=== PATIENT | female | born 1960 | race African-American/Black ===

== ENCOUNTER 2018-05-27 17:47 | Emergency (ER) | payer OTHER ==
[~2018-05-27] VITALS: Ht 167.6 cm; Wt 65.8 kg
[2018-05-27 17:50] VITALS: BP 112/73
--- NOTE | 2018-05-27 17:50 | NUR ---
ED Nurse Note: PT WALKED IN TO ER TODAY FROM HOME. AOX4. PT C/O RIGHT MIDDLE FINGER PAIN, 6/10 AFTER A DOOR SLAMMED ON IT X LAST NIGHT. PT ALSO C/O SOME RESIDUAL SWELLING X LAST NIGHT. CIRCULATION AND SENSATION INTACT, CAP REFILL <3 SECONDS, FULL ROM OF DIGIT. SKIN CLEAN, DRY, AND INTACT.
[2018-05-27] MEDS ORDERED: ADDERALL 10 MG10 MG ORAL (17:54)
[2018-05-27] MEDS ORDERED: BUSPIRONE HCL10 M1 ORAL (17:54)
--- NOTE | 2018-05-27 18:57 | Emergency Room Report ---
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 Patient reports loss of swelling in the right finger after the injury patient took ibuprofen with relief. Patient reports there was blackening of the right third digit nail and she put nail nicaraguan over as she does not want to look at it. Denies pain radiation, numbness, tingling. Patient is rating the pain 5 out of 10 and intermittent. Pain only upon palpation of the affected area range of motion intact. Denies all other injury, SOB, chest pain, palpitation and all other associated symptoms. Patient is very impatient and wants to go home and asks multiple times to be out of the emergency room in less than 30 minutes. Patient has been explained that x-rays needs to be done to rule out crushing injury or fracture into to remove nail nicaraguan to rule out subungual hematoma (Omkar Rockwell) Allergies: Coded Allergies: No Known Allergies (Unverified , 05/27/18) Patient History Past Medical History: see triage record Past Surgical History: none Pertinent Family History: none Last Menstrual Period: n/a Now: No : 2 Para: 2 Immunizations: UTD Reviewed Nursing Documentation: PMH: Agreed; PSxH: Agreed (Omkar Rockwell) Nursing Documentation-PMH Past Medical History: No History, Except For (Omkar Rockwell) Review of Systems All Other Systems: negative except mentioned in HPI (Omkar Rockwlel) Physical Exam Vital Signs Date Time Temp Pulse Resp B/P (MAP) Pulse Ox O2 Delivery O2 Flow Rate FiO2 05/27/18 17:50 98.4 98 18 102/69 94 Room Air Sp02 EP Interpretation: reviewed, normal General Appearance: normal inspection, well appearing, no apparent distress Head: normocephalic Eyes: bilateral eye normal inspection, bilateral eye PERRL ENT: normal ENT inspection, normal pharynx Neck: normal inspection, full range of motion Respiratory: normal inspection, lungs clear Cardiovascular #1: normal inspection, no edema, no murmur Cardiovascular #2: 2+ radial (R), 2+ radial (L) Gastrointestinal: normal inspection, soft Rectal: deferred Genitourinary: deferred Musculoskeletal: normal range of motion, other - No subungual hematoma noted however bruising over right third finger at nail bed, tender - right third finger at the DIP Neurologic: normal inspection, alert Psychiatric: normal inspection Skin: normal inspection, normal color, no rash Lymphatic: normal inspection, no adenopathy (Omkar Rockwell) Medical Decision Making PA Attestation Diagnoses and treatment plans are reviewed and discussed with supervising physician Dr. 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 Patient reports loss of swelling in the right finger after the injury patient took ibuprofen with relief. Patient reports there was blackening of the right third digit nail and she put nail nicaraguan over as she does not want to look at it. Denies pain radiation, numbness, tingling. Patient is rating the pain 5 out of 10 and intermittent. Pain only upon palpation of the affected area range of motion intact. Denies all other injury, SOB, chest pain, palpitation and all other associated symptoms. Patient is very impatient and wants to go home and asks multiple times to be out of the emergency room in less than 30 minutes. Patient has been explained that x-rays needs to be done to rule out crushing injury or fracture into to remove nail nicaraguan to rule out subungual hematoma Ddx considered but are not limited to asked her right ring finger, subungual hematoma, contusion of right finger with nailbed Vital signs: are WNL, pt. is afebrile H&PE are most consistent with lesion of right third finger with nailbed ORDERS: x-ray right finger, naproxen ED INTERVENTIONS: None required at this time. DISCHARGE: At this time pt. is stable for d/c to home. Will provide printed patient care instructions, and any necessary prescriptions. Care plan and follow up instructions have been discussed with the patient prior to discharge. she has been explained that isneededasthereisnofracture, patientavoidputtingnailpolishoveraffectedareaassheneedstokeepcheckingcapillaryre fill.Takemedicationasdirected , (Omkar Rockwell) Other X-Ray Diagnostic Results Other X-Ray Diagnostic Results : X-Ray ordered: finger right hand # of Views/Limited Vs Complete: 3 View Indication: Swelling EP Interpretation: Yes PA Xray: Interpretation reviewed, by supervising MD, and agrees with findings. Interpretation: no dislocation, no soft tissue swelling, no fractures Impression: No acute disease Electronically Signed by: omkar ESCOBAR Scribe Text reading of images have been discussed with my supervising physician Dr. Pendleton (Omkar Rockwell) Other X-Ray Diagnostic Results : Electronically Signed by: Soren Oleary documentation of Xray reviewed by me and is accurate, Juan Pendleton MD (Juan Pendleton MD) Last Vital Signs Date Time Temp Pulse Resp B/P (MAP) Pulse Ox O2 Delivery O2 Flow Rate FiO2 05/27/18 17:50 98.3 94 16 112/73 98 Room Air (Omkar Rockwell) Disposition: HOME, SELF-CARE Condition: Stable Scripts Naproxen* (NAPROSYN*) 250 Mg Tablet 250 MG ORAL TWICE A DAY, #15 TAB 0 Refills Prov: Omkar Rockwell 05/27/18 Referrals: [facility]ERR[facility] (PCP) Patient Instructions: Contusion, [id number] Additional Instructions: medications as directed and avoid lifting heavy objects with the affected side icing the finger will help with pain and the healing process. Omkar Rockwell May 27, 2018 18:57 Juan Pendleton MD May 28, 2018 01:28
[2018-05-27] MEDS ORDERED: NAPROXEN250 MG ORAL (18:58)
[2018-05-27 19:03] VITALS: BP 116/76
--- NOTE | 2018-05-27 19:04 | NUR ---
ER Nurse Note: PT SITTING PEACEFULLY IN BED IN NAD. AOX4. PRESCRIPTION AND DISCHARGE PAPERWORK EXPLAINED TO PT. PT VERBALIZES UNDERSTANDING AND DENIES ANY QUESTIONS AT THIS TIME. PRESCRIPTION AND DISCHARGE PAPERWORK GIVEN TO PT AND ID WRISTBAND REMOVED. PT WALKED OUT OF ER WITH STEADY GAIT WITH ALL BELONGINGS.
--- NOTE | 2018-05-28 11:03 | Diagnostic Imaging Report ---
Indication: Trauma, pain Technique: 3 views of the right middle finger Comparison: none Findings: No acute fractures. No dislocations. The joint spaces are preserved. Impression: No acute bony trauma
== END 2018-05-27 19:04 | disposition home or self-care (01) ==
LOC: EMR 18:05
DX: S60.131A Contusion of right middle finger with damage to nail, initial encounter (principal); W23.0XXA Caught, crushed, jammed, or pinched between moving objects, initial encounter; Y92.9 Unspecified place or not applicable
CPT/HCPCS: 99283

== ENCOUNTER 2018-07-11 09:40 | Emergency (ER) | payer OTHER ==
[~2018-07-11] VITALS: Ht 172.7 cm; Wt 77.1 kg
[~2018-07-11 09:40] MED LIST: ADDERALL 10 MG10 MG ORAL; BUSPIRONE HCL10 M1 ORAL; NAPROXEN250 MG ORAL
[2018-07-11] MEDS ORDERED: UNOBMED (09:48)
--- NOTE | 2018-07-11 09:59 | NUR ---
ED Nurse Note: PT WALKED IN TO ER TODAY FROM HOME. AOX4. PT C/O RIGHT SIDED BACK PAIN, 10 X THIS AM ACCOMPANIED BY NAUSEA. PT DENIES VOMITING. PT DENIES INJURY OR TRAUMA. PT ALSO C/O NUMBNESS AND TINGLING ON RIGHT HAND. PT DENIES CHEST PAIN.
[2018-07-11 10:00] VITALS: BP 143/69
[2018-07-11] MEDS ORDERED: Ketorolac 30mg Inj IV ONE (10:00)
--- NOTE | 2018-07-11 10:01 | Emergency Room Report ---
History of Present Illness General Chief Complaint: Back Pain-No Injury Source: Patient Present Illness HPI Patient presents with right upper back pain radiating to her right arm that began last night. She tried smoking cannabis to help this. She's had pain in her back in the past but not like this before. It worsened. She has any fevers or chills. The pain is so severe, she is having difficulty speaking. It is a burning and aching pain and rated 10/10 and constant. She denies lower extremity weakness, edema or calf pain. No sore throat, cough, rashes. She denies diabetes or high blood pressure. Allergies: Coded Allergies: No Known Allergies (Unverified , 05/27/18) Patient History Past Medical History: see triage record Social History: Reports: drug use - THC; Denies: smoking Social History Narrative Accompanied by friend Last Menstrual Period: menopause Reviewed Nursing Documentation: PMH: Agreed; PSxH: Agreed Nursing Documentation-PMH Past Medical History: No History, Except For History Of Psychiatric Problem: Yes - depression, anxiety Review of Systems All Other Systems: negative except mentioned in HPI Physical Exam Vital Signs Date Time Temp Pulse Resp B/P (MAP) Pulse Ox O2 Delivery O2 Flow Rate FiO2 07/11/18 09:46 98.2 67 18 150/81 96 Room Air Sp02 EP Interpretation: reviewed, normal General Appearance: well appearing, GCS 15 - Though somewhat subdued mentation , mild distress, other - Strong smell of cannabis with patient Head: normocephalic Eyes: bilateral eye PERRL, bilateral eye Scleral Injection ENT: moist mucus membranes Neck: supple Respiratory: lungs clear, normal breath sounds, other - Scapular muscle pain Cardiovascular #1: regular rate, rhythm, no edema Cardiovascular #2: 2+ radial (R) Gastrointestinal: normal inspection, normal bowel sounds, non tender, no mass, non-distended Genitourinary: no CVA tenderness Musculoskeletal: normal range of motion, no calf tenderness Neurologic: alert, oriented x3, motor strength/tone normal, DTRs symmetric, sensory intact - However subjective tingling of right arm Skin: normal inspection, warm/dry Medical Decision Making Diagnostic Impression: Primary Impression: Muscle spasm Additional Impression: Paresthesias ER Course Patient presents with right-sided chest pain with numbness in her right arm. Differential includes muscle spasm, stroke, acute myocardial infarction, pneumothorax, pulmonary embolus amongst others. Based on history and physical exam pulmonary embolus is less likely. Patient is evaluated with EKG, chest x- ray labs. Based on the fact that she has difficulty speaking and paresthesias a CT of the head is ordered. EKG without injury. Chest x-ray no infiltrate. CT of the head normal. Labs with normal white count. CMP minimal hypokalemia, slightly elevated out [place], glucose 130. Urine tox positive for THC. After analgesia patient able to speak in full sentences and ambulatory without difficulty. States pain is greatly improved and numbness is decreased but still present. Patient upset about including THC use in diagnosis. Long discussion about this. Based on her insistence and the fact that the history is complete, diagnosis removed. Also discussed possible etiology of pain. and expected treatment course. No medical emergency and patient is stable for outpatient observation and treatment. Laboratory Tests Test 07/11/18 10:20 07/11/18 11:19 White Blood Count 10.4 K/UL (4.8-10.8) Red Blood Count 4.91 M/UL (4.20-5.40) Hemoglobin 14.7 G/DL (12.0-16.0) Hematocrit 43.0 % (37.0-47.0) Mean Corpuscular Volume 88 FL (80-99) Mean Corpuscular Hemoglobin 30.0 PG (27.0-31.0) Mean Corpuscular Hemoglobin Concent 34.3 G/DL (32.0-36.0) Red Cell Distribution Width 11.4 % (11.6-14.8) L Platelet Count 347 K/UL (150-450) Mean Platelet Volume 5.6 FL (6.5-10.1) L Neutrophils (%) (Auto) 84.8 % (45.0-75.0) H Lymphocytes (%) (Auto) 10.9 % (20.0-45.0) L Monocytes (%) (Auto) 3.4 % (1.0-10.0) Eosinophils (%) (Auto) 0.3 % (0.0-3.0) Basophils (%) (Auto) 0.7 % (0.0-2.0) Prothrombin Time 9.4 SEC (9.30-11.50) Prothrombin Time INR 0.9 (0.9-1.1) PTT 28 SEC (23-33) Sodium Level 139 MMOL/L (136-145) Potassium Level 3.4 MMOL/L (3.5-5.1) L Chloride Level 102 MMOL/L (98-107) Carbon Dioxide Level 25 MMOL/L (21-32) Anion Gap 12 mmol/L (5-15) Blood Urea Nitrogen 10 mg/dL (7-18) Creatinine 0.9 MG/DL (0.55-1.30) Estimate Glomerular Filtration Rate > 60 mL/min (>60) Glucose Level 130 MG/DL (74-106) H Calcium Level 9.1 MG/DL (8.5-10.1) Total Bilirubin 0.4 MG/DL (0.2-1.0) Aspartate Amino Transferase (AST) 20 U/L (15-37) Alanine Aminotransferase (ALT) 27 U/L (12-78) Alkaline Phosphatase 130 U/L (46-116) H Total Creatine Kinase 125 U/L (26-308) Troponin I 0.000 ng/mL (0.000-0.056) Pro-B-Type Natriuretic Peptide 153 pg/mL (0-125) H Total Protein 7.8 G/DL (6.4-8.2) Albumin 3.6 G/DL (3.4-5.0) Globulin 4.2 g/dL Albumin/Globulin Ratio 0.9 (1.0-2.7) L Urine Color Pale yellow Urine Appearance Clear Urine pH 8 (4.5-8.0) Urine Specific [place] 1.015 (1.005-1.035) Urine Protein Negative (NEGATIVE) Urine Glucose (UA) Negative (NEGATIVE) Urine Ketones Negative (NEGATIVE) Urine Blood Negative (NEGATIVE) Urine Nitrite Negative (NEGATIVE) Urine Bilirubin Negative (NEGATIVE) Urine Urobilinogen Normal MG/DL (0.0-1.0) Urine Leukocyte Esterase Negative (NEGATIVE) Urine Opiates Screen Negative (NEGATIVE) Urine Barbiturates Screen Negative (NEGATIVE) Phencyclidine (PCP) Screen Negative (NEGATIVE) Urine Amphetamines Screen Negative (NEGATIVE) Urine Benzodiazepines Screen Negative (NEGATIVE) Urine Cocaine Screen Negative (NEGATIVE) Urine Marijuana (THC) Screen Positive (NEGATIVE) H EKG Diagnostic Results Rate: normal Rhythm: NSR ST Segments: no acute changes - Incomplete right bundle-branch block Rhythm Strip Diag. Results EP Interpretation: yes Rhythm: NSR, no PVC's, no ectopy Chest X-Ray Diagnostic Results Chest X-Ray Diagnostic Results : Chest X-Ray Ordered: Yes # of Views/Limited/Complete: 1 View Indication: Chest Pain Interpretation: no consolidation, no effusion, no pneumothorax Impression: No acute disease Electronically Signed by: Electronically signed by Juan Pendleton MD Last Vital Signs Date Time Temp Pulse Resp B/P (MAP) Pulse Ox O2 Delivery O2 Flow Rate FiO2 07/11/18 14:13 98.4 64 16 132/68 100 Room Air Status: improved Disposition: HOME, SELF-CARE Condition: Improved Scripts Ibuprofen* (MOTRIN*) 600 Mg Tablet 600 MG ORAL Q6H PRN for For Pain, #20 TAB Prov: Juan Pendleton MD 07/11/18 Tramadol Hcl* (ULTRAM*) 50 Mg Tablet 50 MG ORAL Q6H PRN for For Pain, #10 TAB 0 Refills Prov: Juan Pendleton MD 07/11/18 Methocarbamol* (ROBAXIN*) 500 Mg Tablet 500 MG PO TID, #10 TAB 0 Refills Prov: Juan Pendleton MD 07/11/18 Juan Pendleton MD Jul 11, 2018 10:01
--- NOTE | 2018-07-11 10:16 | NUR ---
ED Nurse Note: XRAY AT BEDSIDE
[2018-07-11 10:38] LABS: INR 0.9 (0.9-1.1)
[2018-07-11 10:39] LABS: BASOPHILS % (AUTO) 0.7 % (0.0-2.0); EOSINOPHILS % (AUTO) 0.3 % (0.0-3.0); HEMOGLOBIN 14.7 G/DL (12.0-16.0); LYMPHOCYTES % (AUTO) 10.9 % (20.0-45.0); MEAN CORPUSCULAR VOLUME 88 FL (80-99); MONOCYTES % (AUTO) 3.4 % (1.0-10.0); NEUTROPHILS % (AUTO) 84.8 % (45.0-75.0); PLATELET COUNT 347 K/UL (150-450); RED BLOOD COUNT 4.91 M/UL (4.20-5.40); RED CELL DISTRIBUTION WIDTH 11.4 % (11.6-14.8); WHITE BLOOD COUNT 10.4 K/UL (4.8-10.8)
[2018-07-11] MEDS ORDERED: fentaNYL 100 mcg/2 mL IV ONE (10:45)
[2018-07-11 10:46] LABS: ANION GAP 12 mmol/L (5-15); BLOOD UREA NITROGEN 10 mg/dL (7-18); CALCIUM 9.1 MG/DL (8.5-10.1); CARBON DIOXIDE 25 MMOL/L (21-32); CHLORIDE 102 MMOL/L (98-107); CREATININE 0.9 MG/DL (0.55-1.30); POTASSIUM 3.4 MMOL/L (3.5-5.1); SODIUM 139 MMOL/L (136-145)
--- NOTE | 2018-07-11 10:50 | NUR ---
ED Nurse Note: PT TO CT VIA [facility]
[2018-07-11 11:02] LABS: ALANINE AMINOTRANSFERASE 27 U/L (12-78); ALBUMIN 3.6 G/DL (3.4-5.0); ALBUMIN/GLOBULIN RATIO 0.9 (1.0-2.7); ALKALINE PHOSPHATASE 130 U/L (46-116); ASPARTATE AMINO TRANSFERASE 20 U/L (15-37); BILIRUBIN,TOTAL 0.4 MG/DL (0.2-1.0); CREATINE KINASE 125 U/L (26-308)
--- NOTE | 2018-07-11 11:03 | Diagnostic Imaging Report ---
Indication: Chest pain Technique: One view of the chest Comparison: none Findings: Lungs and pleural spaces are clear. The heart size is normal Impression: Negative
--- NOTE | 2018-07-11 11:23 | Diagnostic Imaging Report ---
Indications: Altered mental status Technique: Spiral acquisitions obtained through the brain. Angled axial and coronal 5 x 5 mm slices were reconstructed. Total dose length product 1326.82 mGycm. CTDI vol(s) 70.38 mGy. Dose reduction achieved using automated exposure control Comparison: None. Findings: No acute intracranial hemorrhage or edema, mass effect, nor midline shift. Normal hatch-white differentiation. Normal-sized ventricles and extra axial CSF spaces. Intact calvarium. Incidental finding of empty sella Impression: Negative The CT scanner at [facility] is accredited by the [employer] and the scans are performed using protocols designed to limit radiation exposure to as low as reasonably achievable to attain images of sufficient resolution adequate for diagnostic evaluation.
[2018-07-11 11:45] VITALS: BP 136/66
[2018-07-11 12:19] LABS: APPEARANCE,URINE CLEAR; BILIRUBIN, URINE NEGATIVE (NEGATIVE); COLOR,URINE PALE YELLOW; GLUCOSE, URINE (UA) NEGATIVE (NEGATIVE); KETONES,URINE NEGATIVE (NEGATIVE); LEUKOCYTE ESTERASE ,URINE NEGATIVE (NEGATIVE); NITRITE,URINE NEGATIVE (NEGATIVE); PH,URINE 8 (4.5-8.0); PROTEIN,URINE NEGATIVE (NEGATIVE); UROBILINOGEN,URINE NORMAL MG/DL (0.0-1.0)
[2018-07-11] MEDS ORDERED: TRAMADOL HCL50 MG ORAL (13:05)
[2018-07-11] MEDS ORDERED: IBUPROFEN600 MG ORAL (13:05)
[2018-07-11] MEDS ORDERED: ROBAXIN500 MG PO (13:05)
[2018-07-11 14:13] VITALS: BP 132/68
--- NOTE | 2018-07-11 14:14 | NUR ---
ED Nurse Note: PT LAYING PEACEFULLY IN BED IN NAD. AOX4. PRESCRIPTIONS AND DISCHARGE PAPERWORK EXPLAINED TO PT. PT VERBALIZES UNDERSTANDING AND ALL QUESTIONS ANSWERED. PRESCRIPTIONS AND DISCHARGE PAPERWORK GIVEN TO PT, IV AND ID WRISTBAND REMOVED. PT WALKED OUT OF ER WITH STEADY GAIT AND ALL BELONGINGS.
== END 2018-07-11 14:13 | disposition home or self-care (01) ==
LOC: EMR 11:24
DX: M62.838 Other muscle spasm (principal); R20.2 Paresthesia of skin; R07.9 Chest pain, unspecified; F12.90 Cannabis use, unspecified, uncomplicated; F32.9 Major depressive disorder, single episode, unspecified; F41.9 Anxiety disorder, unspecified
CPT/HCPCS: 36415; 70450; 71045; 80053; 80307; 81003; 82550; 83880; 84484; 85025; 85610; 85730; 93005; 96374; 99284; J1885